=== PATIENT | female | born 1955 | race Caucasian/White ===

== ENCOUNTER 2023-06-07 09:05 | Day surgery (SDC) | payer OTHER ==
[2023-06-05 08:08] VITALS: BMI 27.4
[2023-06-07] MEDS ORDERED: PROPOFOL 160 ML ONE (10:32)
[2023-06-07] MEDS ORDERED: ePHEDrine SULFATE 50 MG/1 ML AMPULE ONE (10:34)
[2023-06-07 11:02] VITALS: RESP 16; TEMP 97.5
[2023-06-07 11:21] VITALS: BP 143/69; PULSE 68
== END 2023-06-07 11:23 | disposition home or self-care (01) ==
LOC: FASU-ENDO 09:05
PROVIDERS: ATTEND Internal Medicine Gastroenterology
PROC: 0DBL8ZX Excision of Transverse Colon, Via Natural or Artificial Opening Endoscopic, Diagnostic (ICD-10-PCS; principal; 2023-06-07 10:30)
DX: Z12.11 Encounter for screening for malignant neoplasm of colon (principal); K63.5 Polyp of colon; K64.1 Second degree hemorrhoids; K64.8 Other hemorrhoids; Z86.010 Personal history of colon polyps
CPT/HCPCS: 88305-TC

== ENCOUNTER 2023-06-21 07:28 | Day surgery (SDC) | payer OTHER ==
[2023-06-19 15:13] VITALS: BMI 27.4
[2023-06-21] MEDS ORDERED: LIDOCAINE HCL/PF 2% SDV 5ML VIAL ONE (07:51)
[2023-06-21] MEDS ORDERED: PROPOFOL 160 ML ONE (07:52)
[2023-06-21 09:22] VITALS: PULSE 70; RESP 16; TEMP 96.7
[2023-06-21 09:34] VITALS: BP 112/60
== END 2023-06-21 09:40 | disposition home or self-care (01) ==
LOC: FASU-ENDO 07:28
PROVIDERS: ATTEND Internal Medicine Gastroenterology
PROC: 0DB78ZX Excision of Stomach, Pylorus, Via Natural or Artificial Opening Endoscopic, Diagnostic (ICD-10-PCS; 2023-06-21)
PROC: 0DB28ZX Excision of Middle Esophagus, Via Natural or Artificial Opening Endoscopic, Diagnostic (ICD-10-PCS; 2023-06-21)
PROC: 0DB48ZX Excision of Esophagogastric Junction, Via Natural or Artificial Opening Endoscopic, Diagnostic (ICD-10-PCS; 2023-06-21)
PROC: 0DB98ZX Excision of Duodenum, Via Natural or Artificial Opening Endoscopic, Diagnostic (ICD-10-PCS; principal; 2023-06-21 08:56)
DX: K29.50 Unspecified chronic gastritis without bleeding (principal); K20.90 Esophagitis, unspecified without bleeding; R10.13 Epigastric pain
CPT/HCPCS: 88305-TC; 88342-TC